=== PATIENT | female | born 1950 | race Caucasian/White ===

== ENCOUNTER 2018-12-04 08:01 | Emergency (ER) | payer MEDICARE ==
--- NOTE | 2018-12-04 08:09 | UC ---
Hand/Wrist HPI - HPI Summary HPI Summary: 68 y/o female presents to the urgent care c/o RT wrist and hand pain with swelling s/p fall while walking her do last night. Pt applied ice and took Aleve PO. Last dose taken around 0300AM. Pain is throbbing with movement, 6/10 radiating to the RT hand w/ decrease ROM of her fingers 4th and 5th and wrist. Pt denies fever, SOB, chest pain, abdominal pain, N/V/D. - History Of Current Complaint Stated Complaint: R HAND INJURY Time Seen by Provider: 12/04/18 08:06 Hx Obtained From: Patient ?: No - Menopausal Onset/Duration: Sudden Onset, Lasting Days - 1 day, Still Present Severity Initially: Moderate Severity Currently: Moderate Pain Intensity: 6 Pain Scale Used: 0-10 Numeric Character Of Pain: Sharp Aggravating Factor(s): Movement, Lifting Alleviating Factor(s): Rest, Ice, OTC Meds - Aleve Associated Signs And Symptoms: Positive: Swelling - RT wrist and RT hand. 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 - Family History Known Family History: Positive: Diabetes - Social History Occupation: Retired Lives: With Family Alcohol Use: Occasionally Substance Use Type: None Smoking Status (MU): Never Smoked Tobacco Amount Used/How Often: 1-2 PPD X 10 YEARS Have You Smoked in the Last Year: No When Did the Patient Quit Smoking/Using Tobacco: 34 YEARS AGO Review of Systems All Other Systems Reviewed And Are Negative: Yes Constitutional: Positive: Negative Skin: Positive: Other - Rt wrist swelling w/p fall Eyes: Positive: Negative ENT: Positive: Negative Respiratory: Positive: Negative Cardiovascular: Positive: Negative Gastrointestinal: Positive: Negative Genitourinary: Positive: Negative Motor: Positive: Negative Neurovascular: Positive: Negative Musculoskeletal: Positive: Decreased ROM - RT wrist and fingers s/p fall, Other : - RT wirst and finger pain s/p fall Neurological: Positive: Negative Psychological: Positive: Negative Is Patient Immunocompromised?: No Physical Exam - Summary Physical Exam Summary: Vital Signs Reviewed: Yes General: Well-Appearing, No Pain Distress, Well-Nourished obese female w/o any apparent distress Eyes: Positive: Conjunctiva Clear - PERRLA, EOMI ENT: Positive: Normal ENT inspection, Hearing grossly normal, Pharynx normal, TMs normal, Uvula midline Neck: Positive: Supple, Nontender, No Lymphadenopathy Respiratory: Positive: Chest non-tender, Lungs clear, Normal breath sounds, No respiratory distress Cardiovascular: Positive: RRR, No Murmur, Pulses Normal, Brisk Capillary Refill Abdomen Description: Positive: Nontender, No Organomegaly, Soft. Negative: CVA Tenderness (R), CVA Tenderness (L) Bowel Sounds: Positive: Present Musculoskeletal: Positive: Strength Intact, Other: Neurological Exam: Normal Musculoskeletal: Positive: Wrist: the R wrist is without obvious asymmetry or deformity when compared to the L wrist. No surface trauma, open wounds, moderates swelling over the lateral side of the wrist w/o any obvious deformity. No overlying erythema or warmth. No bony crepitus. Point tenderness over the thenar eminence and ventral side and lateral side of wrist. No scaphoid fullness or tenderness to direct palpation or axial load. Decreased ROM due to pain. Motor/sensory function of ulnar, radial, median nerves intact. Ulnar and radial pulses intact. Psychological Exam: Normal Skin Exam: Normal Triage Information Reviewed: Yes Hand/Wrist Course/Dx - Course Course Of Treatment: 68 y/o female presents to the urgent care c/o RT wrist and hand pain with swelling s/p fall while walking her do last night. Pt applied ice and took Aleve PO. Last dose taken around 0300AM. Pain is throbbing with movement, 6/10 radiating to the RT hand w/ decrease ROM of her fingers 4th and 5th and wrist. Pt denies fever, SOB, chest pain, abdominal pain, N/V/D. Hx obtained. Rt wrist and Rt hand X-ray ordered. Impression: There was no fracture , dislocation, positive soft tissue swelling observed, no FB noted, some osteopenia on Rt wrist. Probably a Rt wrist sprain. Pt given Tylenol PO at the clinic by the nurse which she tolerated well Pts wrist immobilized with Cock- up splint. Advised RICE: Rest, Ice, elevation, tylenol PO. There was no neurovascular compromise after splint application placed by nurse; the splint was in good alignment and the pt had good sensation and capillary refill at the time of discharge.Pt advised to f/u w/ Orthopedic Dr Reese if not improvement of symptoms in 1 week. Pt's BP is elevated today advised to decrease salt in diet, monitor BP and f/u with PCP for further management. Pt also advised to continue taking her calcium and f/u with PCP for further managment in her osteopenia. Pt understood and agreed w/ plan of care. - Differential Dx/Diagnosis Differential Diagnosis/HQI/PQRI: Contusion, Gout, Sprain, Strain, Other - arthritis Provider Diagnosis: Right wrist pain, Right wrist sprain, Elevated BP without diagnosis of hypertension Discharge - Sign-Out/Discharge Documenting (check all that apply): Patient Departure - d/c home All imaging exams completed and their final reports reviewed: Yes - Discharge Plan Condition: Stable Disposition: HOME Prescriptions: Acetaminophen TAB* [Tylenol TAB*] 650 mg PO Q6H PRN #30 tab PRN Reason: Pain Patient Education Materials: Wrist Sprain (ED) Referrals: Spencer Reese MD [Medical Doctor] - 1 Week Israel Swain MD [Primary Care Provider] - 1 Week Additional Instructions: 1-Please take medications as directed to alleviate pain and swelling. 2-Please apply ice, keep your wrist immobilized with the splint. Avoid heavy lifting, strenuous exercise 3- Please f/u with Orthopedic DR Reese or your PCP in 1 week is not improvement of symptoms for further evaluation and treatment. 4- Your BP is elevated today. please decrease salt in your diet, monitor BP and if it continues to be elevated please f/u with your PCP for further management. - Billing Disposition and Condition Condition: STABLE Disposition: Home - Attestation Statements Provider Attestation: I was available for consult. This patient was seen by the TERESA. The patient was not presented to, seen by, or examined by me. -Gil
[2018-12-04 08:12] VITALS: BP 150/64
[2018-12-04] MEDS ORDERED: Acetaminophen TAB* 325 MG PO ONE (08:22)
== END 2018-12-04 09:20 | disposition home or self-care (01) ==
LOC: UCEAST 08:01
DX: S63.501A Unspecified sprain of right wrist, initial encounter (principal); M25.531 Pain in right wrist; R03.0 Elevated blood-pressure reading, without diagnosis of hypertension; E11.9 Type 2 diabetes mellitus without complications; Z87.891 Personal history of nicotine dependence; Z91.040 Latex allergy status; Z91.013 Allergy to seafood; W19.XXXA Unspecified fall, initial encounter; Y93.01 Activity, walking, marching and hiking; Y92.9 Unspecified place or not applicable
CPT/HCPCS: 99213; A9270-GY; G0463